=== PATIENT | male | born 1925 | race Caucasian/White ===

== ENCOUNTER 2016-05-27 15:45 | Inpatient (IN) | payer OTHER ==
[2016-05-27 17:07] VITALS: BMI 23.1
--- NOTE | 2016-05-27 18:15 | History and Physical Report ---
History of Present Illnes - History of Present Illness Reason for Visit: Weakness History of Present Illness: Patient presents to SNF from [facility] after failing a trial of home health after a recent hospitalization at [facility] for GI bleed. He was originally admitted 05-19-16 with vomiting blood. EGD showed [place] tear in distal esophagus - injected with epi and clipped. Discharged the next day. Soon had dark tarry stools and felt light headed so went back to [facility]. Hgb noted to be 6. Repeat EGD showed large duodenal ulcer and esophogeal ulcers and esophagitis. Due to hypotension, BPH meds were held. Patient noted to have urinary retention. His bladder scan showed 1000 cc of urine. Lewis was placed and flomax restarted. He failed lewis removal so lewis replaced and finestaride started. He has an appt with urology in a week. - Past Medical History Cardiac: CAD (Dr. Estrada), Other (; h/o AAA's) Gastrointestinal: GI bleed (due to duodenal ulcer with [place]i [place] tear - 05/13 ), Other (colon polyps) Heme/Onc: Other (Chronic thrombocytopenia - DR. Matias) Psych: Depression Musculoskeletal: Other (Osteoporosis) Renal/: Benign prostatic enlarg. (Now with urinary retention - lewis) - Past Surgical History Past Surgical History: Appendectomy, Other (Pacemaker 2012 for sick sinus syndrome), Other (AAA repairs - last 2014 - surgeries for this.) - Past Social History Smoke: Quit (Used to smoke a pipe) Alcohol: None Lives: With Family ( - Corine) - Health Maintenance Health Maintenance: Cholesterol, Influenza Vaccine, Pneumococcal Vaccine, Colonoscopy, DEXA Influenza Vaccine: Current for this Influenza Season Pneumonia Vaccine: Yes Resuscitation Status: Resusciation Status Resuscitation Status Full Code Review of Systems - Review of Systems Constitutional: Weakness. negative: Fever Eyes: negative: pain ENT: negative: Nose Discharge Respiratory: negative: Cough, Shortness of Breath Cardiovascular: negative: Chest Pain Gastrointestinal: Constipation. negative: Nausea, Vomiting, Abdominal Pain Genitourinary: negative: Dysuria Musculoskeletal: negative: Back Pain Skin: negative: Rash Neurological: Weakness - Medications/Allergies Allergies/Adverse Reactions: Allergies Allergy/AdvReac Type Severity Reaction Status Date / Time No Known Allergies Allergy Verified 05/27/16 18:34 Home Medications: Home Medications Citalopram Hydrobromide [Celexa] 40 mg PO QD 05/27/16 Finasteride [Proscar] 5 mg PO HS 05/27/16 Losartan Potassium [Cozaar] 50 mg PO DAILY 05/27/16 Metoprolol Tartrate [Lopressor] 50 mg PO BID 05/27/16 Ondansetron HCl Rapdis [Zofran Odt] 4 mg PO Q4 05/27/16 Pantoprazole Sodium [Protonix] 40 mg PO 717 05/27/16 Tamsulosin HCl [Flomax] 0.4 mg PO [id number] 05/27/16 Current Inpatient Medications: Current Inpatient Medications Bisacodyl (Dulcolax) 10 mg PO DAILY PRN PRN Reason: Constipation Citalopram Hydrobromide (Celexa) 40 mg PO QD JHONY Finasteride (Proscar) 5 mg PO HS [facility] Losartan Potassium (Cozaar) 50 mg PO DAILY [facility] Metoprolol Tartrate (Lopressor) 50 mg PO BID JHONY Ondansetron HCl (Zofran Odt) 4 mg PO Q4 JHONY Pantoprazole Sodium (Protonix) 40 mg PO 717 [facility] Tamsulosin HCl (Flomax) 0.4 mg PO [id number] [facility] Exam - Exam Vital Signs: Vital Signs (72 hours) 05/27/16 16:13 Temperature 97.1 F L Pulse Rate [ 61 Left] Respiratory 18 Rate Blood Pressure 138/73 [Left Arm] O2 Sat by Pulse 98 Oximetry General: Alert, Oriented to Person, Oriented to Place, Oriented to Time, Cooperative, No acute distress HEENT: Atraumatic, PERRLA, EOMI, Mouth Mucous membr. moist/[place], Nose Mucous membr. moist/[place] Neck: Normal Range of Motion Lungs: Clear to auscultation, Normal air movement, Speaks full Sentences Cardiovascular: Regular rate Abdomen: Normal bowel sounds, Soft, No tenderness Integumentary: Normal Extremities: No edema Neurological: Generalized Weakness Psych/Mental Status: Mental status NL, Mood NL, Appropriate Affect, Intact Judgment Assessment/Plan - Assessment/Plan (1) Weakness Status: Acute Current Visit: Yes Plan: Will admit for PT/OT. 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 Will check with Dr. Parikh as he had him on carafate in ICU but not continued on d/c. ASA on hold. No chemical DVT measures either. Will place SUZI hose and encourage ambulation. (3) Urinary retention due to benign prostatic hyperplasia Status: Acute Current Visit: Yes Plan: Plan to continue lewis until seen by Dr. Moncada 06-09-16 at 1:00. On flomax and finestaride. (4) HTN (hypertension) Status: Acute Current Visit: Yes Qualifiers: Hypertension type: essential hypertension Qualified Code(s): I10 - Essential (primary) hypertension Plan: Stable with current meds. (5) CAD (coronary artery disease) Status: Acute Current Visit: Yes Qualifiers: Coronary Disease-Associated Artery/Lesion type: [place] artery [place] vs. transplanted heart: [place] heart Associated angina: without angina Qualified Code(s): I25.10 - Atherosclerotic heart disease of [place] coronary artery without angina pectoris Plan: ASA on hold at this time due to GI bleed. Continue other meds. VTE Assessment - RISK FACTOR SCORE VTE RISK FACTOR SCORES: AGE OVER 60 YEARS - RISK VTE LOW RISK: SCORE OF 1 OR LESS (RISK PROXIMAL DVT 0.4%) NO PROPHYLAXIS NEEDED
[2016-05-27] MEDS: CITALOPRAM HYDROBROMIDE 20 MG TABLET PO SCH ×2 (18:54→18:55)
[2016-05-27] MEDS: METOPROLOL TARTRATE 50 MG TABLET PO SCH (20:54)
[2016-05-27] MEDS: FINASTERIDE 5 MG TABLET PO SCH (20:54)
[2016-05-27] MEDS: ONDANSETRON HCL 4 MG TAB.RAPDIS PO SCH (20:55)
[2016-05-28] MEDS: ONDANSETRON HCL 4 MG TAB.RAPDIS PO SCH ×6 (00:13→20:15)
[2016-05-28] MEDS: PANTOPRAZOLE SODIUM 40 MG TABLET PO SCH ×2 (06:06→17:19)
[2016-05-28] MEDS: METOPROLOL TARTRATE 50 MG TABLET PO SCH ×2 (08:57→20:15)
[2016-05-28] MEDS: LOSARTAN POTASSIUM 50 MG TABLET PO SCH (08:57)
[2016-05-28] MEDS: BISACODYL 5 MG TABLET.DR PO PRN (14:19)
[2016-05-28] MEDS: CITALOPRAM HYDROBROMIDE 20 MG TABLET PO SCH (18:30)
[2016-05-28] MEDS: FINASTERIDE 5 MG TABLET PO SCH (20:15)
[2016-05-29] MEDS: ONDANSETRON HCL 4 MG TAB.RAPDIS PO SCH ×6 (01:00→19:55)
[2016-05-29] MEDS: PANTOPRAZOLE SODIUM 40 MG TABLET PO SCH ×2 (06:07→17:22)
[2016-05-29] MEDS ORDERED: MAGNESIUM HYDROXIDE 400 MG/5 ML 30ML UDC PO ONE (08:34)
[2016-05-29] MEDS: LOSARTAN POTASSIUM 50 MG TABLET PO SCH (09:04)
[2016-05-29] MEDS: METOPROLOL TARTRATE 50 MG TABLET PO SCH ×2 (09:05→19:44)
[2016-05-29] MEDS ORDERED: DOCUSATE SODIUM 100 MG CAPSULE ONE (14:43)
[2016-05-29] MEDS: BISACODYL 5 MG TABLET.DR PO PRN (14:46)
[2016-05-29] MEDS: CITALOPRAM HYDROBROMIDE 20 MG TABLET PO SCH (18:16)
[2016-05-29] MEDS: FINASTERIDE 5 MG TABLET PO SCH (19:43)
[2016-05-30] MEDS: ONDANSETRON HCL 4 MG TAB.RAPDIS PO SCH ×6 (05:55→20:25)
[2016-05-30] MEDS: PANTOPRAZOLE SODIUM 40 MG TABLET PO SCH ×2 (06:12→17:24)
[2016-05-30] MEDS ORDERED: BISACODYL 10 MG SUPP.RECT RC PRN (08:25)
--- NOTE | 2016-05-30 08:27 | Inpatient Progress Note ---
Subjective - Required Recertification Statement I anticipate X number of days because-include discharge plan: 7 - Review of Systems Subjective: Feeling better. Eating and sleeping well. NO BM in several days despite dulcolax and MOM. Objective - Exam Vitals and I&O: Vital Signs Temp 98.0 F 05/30/16 08:13 Pulse 61 05/30/16 08:13 Resp 16 05/30/16 08:13 BP 111/49 05/30/16 08:13 Pulse Ox 94 05/30/16 08:13 Intake & Output 05/29/16 05/29/16 05/30/16 11:59 23:59 11:59 Intake Total 240 1610 560 Output Total 1450 1200 2100 Balance -1210 410 -1540 Intake: Oral 240 1610 560 Output: Urine 1450 1200 2100 Uretheral ([place]) 250 1100 Other: Voiding Method Urinal Indwelling Catheter General: Alert, Oriented to Person, Oriented to Place, Oriented to Time, Cooperative, No acute distress Lungs: Clear to auscultation, Normal air movement, Speaks full Sentences Cardiovascular: Regular rate Abdomen: Normal bowel sounds, Soft Assessment/Plan - Assessment/Plan (1) Weakness Status: Acute Current Visit: Yes (2) GI bleed Status: Acute Current Visit: Yes Qualifiers: GI bleed type/associated pathology: duodenal ulcer Qualified Code(s): 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 transplanted heart: [place] heart Associated angina: without angina Qualified Code(s): I25.10 - Atherosclerotic heart disease of [place] coronary artery without angina pectoris (6) Constipation Status: Acute Current Visit: Yes Qualifiers: Constipation type: other constipation type Qualified Code(s): K59.09 - Other constipation Plan: May need to try dulcolax suppository today. Enc. ambulation and prune juice.
[2016-05-30] MEDS: BISACODYL 5 MG TABLET.DR PO PRN (09:50)
[2016-05-30] MEDS: METOPROLOL TARTRATE 50 MG TABLET PO SCH ×2 (09:50→20:25)
[2016-05-30] MEDS: LOSARTAN POTASSIUM 50 MG TABLET PO SCH (09:50)
[2016-05-30] MEDS: TAMSULOSIN HCL 0.4 MG CAP.ER.24H PO SCH ×2 (12:10→18:40)
[2016-05-30] MEDS: CITALOPRAM HYDROBROMIDE 20 MG TABLET PO SCH (18:39)
[2016-05-30] MEDS: SUCRALFATE 1 GM TABLET PO SCH (20:25)
[2016-05-30] MEDS: FINASTERIDE 5 MG TABLET PO SCH (20:25)
[2016-05-31] MEDS: ONDANSETRON HCL 4 MG TAB.RAPDIS PO SCH ×6 (00:43→20:27)
[2016-05-31] MEDS: PANTOPRAZOLE SODIUM 40 MG TABLET PO SCH ×2 (05:59→18:02)
[2016-05-31] MEDS: LOSARTAN POTASSIUM 50 MG TABLET PO SCH (08:04)
[2016-05-31] MEDS: METOPROLOL TARTRATE 50 MG TABLET PO SCH ×2 (08:04→20:26)
[2016-05-31] MEDS: TAMSULOSIN HCL 0.4 MG CAP.ER.24H PO SCH (18:04)
[2016-05-31] MEDS: CITALOPRAM HYDROBROMIDE 20 MG TABLET PO SCH (18:06)
[2016-05-31] MEDS: FINASTERIDE 5 MG TABLET PO SCH (20:26)
[2016-05-31] MEDS: SUCRALFATE 1 GM TABLET PO SCH (20:27)
[2016-06-01] MEDS: ONDANSETRON HCL 4 MG TAB.RAPDIS PO SCH ×6 (01:43→20:11)
[2016-06-01] MEDS: PANTOPRAZOLE SODIUM 40 MG TABLET PO SCH ×2 (05:40→17:19)
[2016-06-01] MEDS: METOPROLOL TARTRATE 50 MG TABLET PO SCH ×2 (08:39→20:11)
[2016-06-01] MEDS: LOSARTAN POTASSIUM 50 MG TABLET PO SCH (08:39)
[2016-06-01] MEDS: TAMSULOSIN HCL 0.4 MG CAP.ER.24H PO SCH (18:26)
[2016-06-01] MEDS: CITALOPRAM HYDROBROMIDE 20 MG TABLET PO SCH (18:26)
[2016-06-01] MEDS: FINASTERIDE 5 MG TABLET PO SCH (20:11)
[2016-06-01] MEDS: SUCRALFATE 1 GM TABLET PO SCH (20:12)
[2016-06-02] MEDS: ONDANSETRON HCL 4 MG TAB.RAPDIS PO SCH ×6 (01:15→19:49)
[2016-06-02] MEDS: PANTOPRAZOLE SODIUM 40 MG TABLET PO SCH ×2 (06:04→17:05)
[2016-06-02 06:40] LABS: BASOPHILS % 0.4 (0.0-1.5); EOSINOPHILS % 1.5 % (0.0-6.8); MEAN CORPUSCULAR HEMOGLOBIN 30.4 pg (28.0-34.0); MONOCYTES % 7.1 % (0.0-11.0); NEUTROPHILS # 6.3 # k/uL (1.4-7.7)
[2016-06-02] MEDS: LOSARTAN POTASSIUM 50 MG TABLET PO SCH (08:00)
[2016-06-02] MEDS: METOPROLOL TARTRATE 50 MG TABLET PO SCH ×2 (08:00→19:49)
[2016-06-02] MEDS: CITALOPRAM HYDROBROMIDE 20 MG TABLET PO SCH (18:47)
[2016-06-02] MEDS: TAMSULOSIN HCL 0.4 MG CAP.ER.24H PO SCH (18:47)
[2016-06-02] MEDS: FINASTERIDE 5 MG TABLET PO SCH (19:49)
[2016-06-02] MEDS: SUCRALFATE 1 GM TABLET PO SCH (19:50)
[2016-06-03] MEDS: ONDANSETRON HCL 4 MG TAB.RAPDIS PO SCH ×6 (01:17→20:10)
[2016-06-03] MEDS: PANTOPRAZOLE SODIUM 40 MG TABLET PO SCH ×2 (06:07→16:41)
[2016-06-03] MEDS: METOPROLOL TARTRATE 50 MG TABLET PO SCH ×2 (07:59→20:09)
[2016-06-03] MEDS: LOSARTAN POTASSIUM 50 MG TABLET PO SCH (08:00)
[2016-06-03] MEDS: TAMSULOSIN HCL 0.4 MG CAP.ER.24H PO SCH ×2 (17:59→18:00)
[2016-06-03] MEDS: FINASTERIDE 5 MG TABLET PO SCH (20:09)
[2016-06-03] MEDS: CITALOPRAM HYDROBROMIDE 20 MG TABLET PO SCH (20:09)
[2016-06-03] MEDS: SUCRALFATE 1 GM TABLET PO SCH (20:10)
[2016-06-04] MEDS: ONDANSETRON HCL 4 MG TAB.RAPDIS PO SCH ×6 (01:16→20:09)
[2016-06-04] MEDS: ACETAMINOPHEN 325 MG TABLET PO PRN ×2 (02:10→22:43)
[2016-06-04] MEDS: BISACODYL 5 MG TABLET.DR PO PRN (02:10)
[2016-06-04] MEDS: PANTOPRAZOLE SODIUM 40 MG TABLET PO SCH ×2 (06:35→16:52)
[2016-06-04] MEDS: METOPROLOL TARTRATE 50 MG TABLET PO SCH ×2 (08:12→20:09)
[2016-06-04] MEDS: LOSARTAN POTASSIUM 50 MG TABLET PO SCH (08:12)
[2016-06-04] MEDS: CITALOPRAM HYDROBROMIDE 20 MG TABLET PO SCH (16:52)
[2016-06-04] MEDS: TAMSULOSIN HCL 0.4 MG CAP.ER.24H PO SCH (16:52)
[2016-06-04] MEDS: SUCRALFATE 1 GM TABLET PO SCH (20:08)
[2016-06-04] MEDS: FINASTERIDE 5 MG TABLET PO SCH (20:09)
[2016-06-05] MEDS: ONDANSETRON HCL 4 MG TAB.RAPDIS PO SCH ×6 (01:00→20:04)
[2016-06-05] MEDS: BISACODYL 5 MG TABLET.DR PO PRN (04:54)
[2016-06-05] MEDS: ACETAMINOPHEN 325 MG TABLET PO PRN ×2 (04:59→20:06)
[2016-06-05] MEDS: PANTOPRAZOLE SODIUM 40 MG TABLET PO SCH ×2 (06:28→17:27)
[2016-06-05] MEDS: METOPROLOL TARTRATE 50 MG TABLET PO SCH ×2 (10:24→20:03)
[2016-06-05] MEDS: LOSARTAN POTASSIUM 50 MG TABLET PO SCH (10:25)
[2016-06-05] MEDS: TAMSULOSIN HCL 0.4 MG CAP.ER.24H PO SCH (17:26)
[2016-06-05] MEDS: CITALOPRAM HYDROBROMIDE 20 MG TABLET PO SCH (17:27)
[2016-06-05] MEDS: SUCRALFATE 1 GM TABLET PO SCH (20:03)
[2016-06-05] MEDS: FINASTERIDE 5 MG TABLET PO SCH (20:03)
[2016-06-06] MEDS: ONDANSETRON HCL 4 MG TAB.RAPDIS PO SCH ×6 (02:12→20:19)
[2016-06-06] MEDS: PANTOPRAZOLE SODIUM 40 MG TABLET PO SCH ×2 (06:09→17:10)
[2016-06-06] MEDS: METOPROLOL TARTRATE 50 MG TABLET PO SCH ×2 (08:02→20:18)
[2016-06-06] MEDS: LOSARTAN POTASSIUM 50 MG TABLET PO SCH (08:03)
[2016-06-06] MEDS: TAMSULOSIN HCL 0.4 MG CAP.ER.24H PO SCH (17:10)
[2016-06-06] MEDS: CITALOPRAM HYDROBROMIDE 20 MG TABLET PO SCH (17:10)
[2016-06-06] MEDS: FINASTERIDE 5 MG TABLET PO SCH (20:18)
[2016-06-06] MEDS: SUCRALFATE 1 GM TABLET PO SCH (20:19)
[2016-06-06] MEDS: ACETAMINOPHEN 325 MG TABLET PO PRN (20:20)
[2016-06-07] MEDS: ONDANSETRON HCL 4 MG TAB.RAPDIS PO SCH ×6 (00:28→19:51)
[2016-06-07] MEDS: ACETAMINOPHEN 325 MG TABLET PO PRN ×2 (05:13→21:21)
[2016-06-07] MEDS: PANTOPRAZOLE SODIUM 40 MG TABLET PO SCH ×2 (05:13→17:16)
[2016-06-07] MEDS: LOSARTAN POTASSIUM 50 MG TABLET PO SCH (07:56)
[2016-06-07] MEDS: METOPROLOL TARTRATE 50 MG TABLET PO SCH ×2 (07:56→19:52)
[2016-06-07] MEDS: CITALOPRAM HYDROBROMIDE 20 MG TABLET PO SCH (17:17)
[2016-06-07] MEDS: TAMSULOSIN HCL 0.4 MG CAP.ER.24H PO SCH (17:17)
[2016-06-07] MEDS: FINASTERIDE 5 MG TABLET PO SCH (19:51)
[2016-06-07] MEDS: SUCRALFATE 1 GM TABLET PO SCH (19:51)
[2016-06-08] MEDS: ONDANSETRON HCL 4 MG TAB.RAPDIS PO SCH ×6 (00:56→20:19)
[2016-06-08] MEDS: PANTOPRAZOLE SODIUM 40 MG TABLET PO SCH ×2 (06:00→17:07)
[2016-06-08] MEDS: METOPROLOL TARTRATE 50 MG TABLET PO SCH ×2 (08:02→20:19)
[2016-06-08] MEDS: LOSARTAN POTASSIUM 50 MG TABLET PO SCH (08:02)
--- NOTE | 2016-06-08 09:14 | Inpatient Progress Note ---
Subjective - Required Recertification Statement I anticipate X number of days because-include discharge plan: 4 - Review of Systems Subjective: Feeling better. Eating and sleeping well. NO BM in several days despite dulcolax and MOM. Objective - Exam Vitals and I&O: Vital Signs Temp 97.2 F L 06/07/16 21:00 Pulse 60 06/07/16 21:00 Resp 18 06/07/16 21:00 BP 138/56 06/07/16 21:00 Pulse Ox 97 06/07/16 21:00 Intake & Output 06/07/16 06/07/16 06/08/16 11:59 23:59 11:59 Intake Total 360 460 Output Total 1000 1600 800 Balance -452 -7066 -800 Intake: Oral 360 460 Output: Urine 1000 1600 800 Other: Voiding Method Indwelling Catheter Indwelling Catheter General: Alert, Oriented to Person, Oriented to Place, Oriented to Time, Cooperative Lungs: Clear to auscultation, Normal air movement, Speaks full Sentences Cardiovascular: Regular rate - Results Results: Laboratory Results WBC 7.50 K/ul (4.00-12.00) 06/02/16 06:25 RBC 2.80 M/ul (3.90-5.20) L 06/02/16 06:25 Hgb 8.5 g/dL (12.0-18.0) L 06/02/16 06:25 Hct 26.5 % (37.0-53.0) L 06/02/16 06:25 MCV 95.0 fl (80.0-100.0) 06/02/16 06:25 MCH 30.4 pg (28.0-34.0) 06/02/16 06:25 MCHC 32.0 g/dL (30.0-36.0) 06/02/16 06:25 RDW 16.3 % (11.3-14.3) H 06/02/16 06:25 Plt Count 158 K/mm3 (130-400) 06/02/16 06:25 Neut % (Auto) 82.9 % (39.0-79.0) H 06/02/16 06:25 Lymph % (Auto) 6.0 % (16.0-50.0) L 06/02/16 06:25 [place] % (Auto) 7.1 % (0.0-11.0) 06/02/16 06:25 Eos % (Auto) 1.5 % (0.0-6.8) 06/02/16 06:25 Baso % (Auto) 0.4 (0.0-1.5) 06/02/16 06:25 Neut # 6.3 # k/uL (1.4-7.7) 06/02/16 06:25 Lymph # 0.4 # k/uL (0.6-4.0) L 06/02/16 06:25 [place] # 0.5 # k/uL (0.0-0.9) 06/02/16 06:25 Eos # 0.1 # k/uL (0.0-0.6) 06/02/16 06:25 Baso # 0.0 # k/uL (0.0-0.5) 06/02/16 06:25 Reactive Lymphs % 2.1 % (0.0-5.0) 06/02/16 06:25 Reactive Lymphs # 0.2 # k/uL (0.0-0.8) 06/02/16 06:25 Assessment/Plan - Assessment/Plan (1) Weakness Status: Acute Current Visit: Yes (2) GI bleed Status: Acute Current Visit: Yes (3) Urinary retention due to benign prostatic hyperplasia Status: Acute Current Visit: Yes (4) HTN (hypertension) Status: Acute Current Visit: Yes (5) CAD (coronary artery disease) Status: Acute Current Visit: Yes (6) Constipation Status: Acute Current Visit: Yes Plan: Add sennosides.
[2016-06-08] MEDS: SENNOSIDES 8.6 MG TABLET PO SCH (11:37)
[2016-06-08] MEDS: TAMSULOSIN HCL 0.4 MG CAP.ER.24H PO SCH (18:05)
[2016-06-08] MEDS: CITALOPRAM HYDROBROMIDE 20 MG TABLET PO SCH (18:05)
[2016-06-08] MEDS: FINASTERIDE 5 MG TABLET PO SCH (20:19)
[2016-06-08] MEDS: SUCRALFATE 1 GM TABLET PO SCH (20:19)
[2016-06-09] MEDS: ONDANSETRON HCL 4 MG TAB.RAPDIS PO SCH ×6 (00:54→20:27)
[2016-06-09] MEDS: PANTOPRAZOLE SODIUM 40 MG TABLET PO SCH ×2 (05:50→16:47)
[2016-06-09] MEDS: LOSARTAN POTASSIUM 50 MG TABLET PO SCH (08:19)
[2016-06-09] MEDS: METOPROLOL TARTRATE 50 MG TABLET PO SCH ×2 (08:19→20:26)
[2016-06-09] MEDS: SENNOSIDES 8.6 MG TABLET PO SCH (08:20)
[2016-06-09] MEDS: CITALOPRAM HYDROBROMIDE 20 MG TABLET PO SCH (18:11)
[2016-06-09] MEDS: TAMSULOSIN HCL 0.4 MG CAP.ER.24H PO SCH (18:11)
[2016-06-09] MEDS: SUCRALFATE 1 GM TABLET PO SCH (20:26)
[2016-06-09] MEDS: FINASTERIDE 5 MG TABLET PO SCH (20:26)
[2016-06-09] MEDS: ACETAMINOPHEN 325 MG TABLET PO PRN (23:30)
[2016-06-10] MEDS: ONDANSETRON HCL 4 MG TAB.RAPDIS PO SCH ×6 (01:28→19:58)
[2016-06-10] MEDS: PANTOPRAZOLE SODIUM 40 MG TABLET PO SCH ×2 (05:58→17:31)
[2016-06-10] MEDS: SENNOSIDES 8.6 MG TABLET PO SCH (09:01)
[2016-06-10] MEDS: LOSARTAN POTASSIUM 50 MG TABLET PO SCH (09:01)
[2016-06-10] MEDS: CIPROFLOXACIN HCL 500 MG TABLET PO SCH ×2 (09:03→19:58)
[2016-06-10] MEDS: METOPROLOL TARTRATE 50 MG TABLET PO SCH ×2 (09:03→19:58)
[2016-06-10] MEDS: CITALOPRAM HYDROBROMIDE 20 MG TABLET PO SCH (17:31)
[2016-06-10] MEDS: TAMSULOSIN HCL 0.4 MG CAP.ER.24H PO SCH (17:31)
[2016-06-10] MEDS: FINASTERIDE 5 MG TABLET PO SCH (19:58)
[2016-06-10] MEDS: SUCRALFATE 1 GM TABLET PO SCH (19:58)
[2016-06-11] MEDS: PANTOPRAZOLE SODIUM 40 MG TABLET PO SCH ×2 (05:55→17:08)
[2016-06-11] MEDS: ONDANSETRON HCL 4 MG TAB.RAPDIS PO SCH ×5 (06:01→19:29)
[2016-06-11] MEDS: METOPROLOL TARTRATE 50 MG TABLET PO SCH ×2 (08:04→19:29)
[2016-06-11] MEDS: CIPROFLOXACIN HCL 500 MG TABLET PO SCH ×2 (08:04→19:29)
[2016-06-11] MEDS: LOSARTAN POTASSIUM 50 MG TABLET PO SCH (08:04)
[2016-06-11] MEDS: SENNOSIDES 8.6 MG TABLET PO SCH (08:05)
[2016-06-11] MEDS: TAMSULOSIN HCL 0.4 MG CAP.ER.24H PO SCH (17:55)
[2016-06-11] MEDS: CITALOPRAM HYDROBROMIDE 20 MG TABLET PO SCH (18:10)
[2016-06-11] MEDS: FINASTERIDE 5 MG TABLET PO SCH (19:29)
[2016-06-11] MEDS: SUCRALFATE 1 GM TABLET PO SCH (19:29)
[2016-06-11] MEDS: ACETAMINOPHEN 325 MG TABLET PO PRN (21:17)
[2016-06-12] MEDS: ACETAMINOPHEN 325 MG TABLET PO PRN (03:26)
[2016-06-12] MEDS: ONDANSETRON HCL 4 MG TAB.RAPDIS PO SCH ×5 (05:59→19:45)
[2016-06-12] MEDS: PANTOPRAZOLE SODIUM 40 MG TABLET PO SCH ×2 (06:03→16:41)
[2016-06-12] MEDS: METOPROLOL TARTRATE 50 MG TABLET PO SCH ×2 (08:23→19:45)
[2016-06-12] MEDS: CIPROFLOXACIN HCL 500 MG TABLET PO SCH ×2 (08:23→19:45)
[2016-06-12] MEDS: LOSARTAN POTASSIUM 50 MG TABLET PO SCH (08:23)
[2016-06-12] MEDS: SENNOSIDES 8.6 MG TABLET PO SCH (08:24)
[2016-06-12] MEDS: TAMSULOSIN HCL 0.4 MG CAP.ER.24H PO SCH (18:19)
[2016-06-12] MEDS: CITALOPRAM HYDROBROMIDE 20 MG TABLET PO SCH (18:19)
[2016-06-12] MEDS: SUCRALFATE 1 GM TABLET PO SCH (19:45)
[2016-06-12] MEDS: FINASTERIDE 5 MG TABLET PO SCH (19:45)
[2016-06-13] MEDS: ONDANSETRON HCL 4 MG TAB.RAPDIS PO SCH ×6 (01:12→20:31)
[2016-06-13] MEDS: ACETAMINOPHEN 325 MG TABLET PO PRN ×2 (02:58→20:33)
[2016-06-13] MEDS: PANTOPRAZOLE SODIUM 40 MG TABLET PO SCH ×2 (05:18→17:54)
[2016-06-13] MEDS ORDERED: TUBERCULIN,PURIF.PROT.DERIV. 5 TU/0.1 ML ID ONE (08:45)
[2016-06-13] MEDS: LOSARTAN POTASSIUM 50 MG TABLET PO SCH (09:31)
[2016-06-13] MEDS: SENNOSIDES 8.6 MG TABLET PO SCH (09:31)
[2016-06-13] MEDS: METOPROLOL TARTRATE 50 MG TABLET PO SCH ×2 (09:31→20:30)
[2016-06-13] MEDS: TAMSULOSIN HCL 0.4 MG CAP.ER.24H PO SCH (17:54)
[2016-06-13] MEDS: CITALOPRAM HYDROBROMIDE 20 MG TABLET PO SCH (17:54)
[2016-06-13] MEDS: FINASTERIDE 5 MG TABLET PO SCH (20:30)
[2016-06-13] MEDS: SUCRALFATE 1 GM TABLET PO SCH (20:30)
[2016-06-14] MEDS: ONDANSETRON HCL 4 MG TAB.RAPDIS PO SCH ×6 (00:42→19:44)
[2016-06-14] MEDS: PANTOPRAZOLE SODIUM 40 MG TABLET PO SCH ×2 (06:29→16:13)
[2016-06-14] MEDS: LOSARTAN POTASSIUM 50 MG TABLET PO SCH (08:17)
[2016-06-14] MEDS: SENNOSIDES 8.6 MG TABLET PO SCH (08:17)
[2016-06-14] MEDS: METOPROLOL TARTRATE 50 MG TABLET PO SCH ×2 (08:17→19:43)
[2016-06-14] MEDS: TAMSULOSIN HCL 0.4 MG CAP.ER.24H PO SCH (17:41)
[2016-06-14] MEDS: CITALOPRAM HYDROBROMIDE 20 MG TABLET PO SCH (18:26)
[2016-06-14] MEDS: SUCRALFATE 1 GM TABLET PO SCH (19:43)
[2016-06-14] MEDS: FINASTERIDE 5 MG TABLET PO SCH (19:44)
[2016-06-15] MEDS: ONDANSETRON HCL 4 MG TAB.RAPDIS PO SCH ×3 (01:21→08:51)
[2016-06-15] MEDS: ACETAMINOPHEN 325 MG TABLET PO PRN (02:56)
[2016-06-15] MEDS: PANTOPRAZOLE SODIUM 40 MG TABLET PO SCH (06:01)
--- NOTE | 2016-06-15 07:49 | Discharge Summary ---
Discharge Summary - Discharge Sumary History of Present Illness: Patient presents to SNF from [facility] after failing a trial of home health after a recent hospitalization at [facility] for GI bleed. He was originally admitted 05-19-16 with vomiting blood. EGD showed [place]i [place] tear in distal esophagus - injected with epi and clipped. Discharged the next day. Soon had dark tarry stools and felt light headed so went back to [facility]. Hgb noted to be 6. Repeat EGD showed large duodenal ulcer and esophogeal ulcers and esophagitis. Due to hypotension, BPH meds were held. Patient noted to have urinary retention. His bladder scan showed 1000 cc of urine. Lewis was placed and flomax restarted. He failed lewis removal so lewis replaced and finestaride started. He has an appt with urology in a week. Condition at Discharge: Stable Home Medications: Ambulatory Orders Medication Instructions Recorded Citalopram Hydrobromide [Celexa] 40 mg PO QD #30 tablet 06/14/16 Finasteride [Proscar] 5 mg PO HS #30 tablet 06/14/16 Losartan Potassium [Cozaar] 50 mg PO DAILY #30 tablet 06/14/16 Metoprolol Tartrate [Lopressor] 50 mg PO BID #60 tablet 06/14/16 Pantoprazole Sodium [Protonix] 40 mg PO 717 #30 tablet. 06/14/16 Sucralfate [Carafate] 1 gm PO HS #30 tablet 06/14/16 Tamsulosin HCl [Flomax] 0.4 mg PO [id number] #30 cap.er.24h 06/14/16 Consultations this Visit: None Procedures this Visit: None Allergies/Adverse Reactions: Allergies Allergy/AdvReac Type Severity Reaction Status Date / Time No Known Allergies Allergy Verified 05/27/16 18:34 Patient Problems: Current Active Problems Problem Status Onset CAD (coronary artery disease) Acute Constipation Acute GI bleed Acute HTN (hypertension) Acute Urinary retention due to benign prostatic hyperplasia Acute Weakness Acute Discharge Summary: Patient was admitted to SNF care after hospitalization x 2 with GI bleed at [facility]. He did well with therapies and progressed to meet his goals. He had a follow up with urology, who tried to discontinue lewis. Bladder was instilled with 500 cc of saline. After no void in 6 hours, lewis was replaced. He will continue current meds and f/u with urology as scheduled. Questions on discharge disposition. Finally, it was decided patient will live with his son. Family refused home health - reporting they will "take him to local therapy." Will place leg bag on lewis for safety. Hospital Course: Discharge Dx: Weakness. GI bleed. HTN. Urinary retention. Disposition - home with son
[2016-06-15] MEDS: LOSARTAN POTASSIUM 50 MG TABLET PO SCH (08:50)
[2016-06-15] MEDS: METOPROLOL TARTRATE 50 MG TABLET PO SCH (08:50)
[2016-06-15] MEDS: SENNOSIDES 8.6 MG TABLET PO SCH (08:54)
[2016-06-15 09:23] VITALS: BP 163/86
== END 2016-06-15 10:30 | disposition home or self-care (01) | DRG 948 ==
LOC: SOUTH 15:45
PROVIDERS: ADMIT Family Medicine; ATTEND Family Medicine
DX: R53.1 Weakness (principal); K92.2 Gastrointestinal hemorrhage, unspecified; I10 Essential (primary) hypertension; R33.9 Retention of urine, unspecified
CPT/HCPCS: 36415; 85025; 86580; A9270

== ENCOUNTER 2016-09-28 10:07 | Emergency (ER) | payer OTHER ==
--- NOTE | 2016-09-28 10:30 | ED Physician Documentation ---
Chest Pain - HISTORIAN Historian: patient, spouse - HPI Chief Complaint: Chest Pain Additional Information: pt light headed on arising went visit friend got worse found yg=270/92.pt has list meds but takes meds from tray filled by son at [facility] so unsure of meds actually taken Onset: hours (4-5) Timing: gradual onset, still present (no falls) Duration: waxing, waning Severity: mild, moderate Quality: none. denies: pressure, tightness Chest Pain Signs/Symptoms: denies: nausea, vomiting, diaphoresis, cool extremities, dizziness Relieved By: rest - ROS CONST: no problems MS/LYMPH: none. denies: neck pain, calf pain, ankle swelling GI/: none EYES/ENT: denies: problems with vision SKIN/ENDO: none NEURO/PSYCH: other (hx dementia) - PAST HX NH risk factors: hypertension DVT/PE Risk Factors: other (bph wears catheter) GI disease: GERD Surgeries/Procedures: pacemaker, other (repair hiatal henia) Allergies/Adverse Reactions: Allergies Allergy/AdvReac Type Severity Reaction Status Date / Time No Known Allergies Allergy Verified 05/27/16 18:34 Home Medications: Ambulatory Orders Medication Instructions Recorded Citalopram Hydrobromide [Celexa] 40 mg PO QD #30 tablet 06/14/16 Finasteride [Proscar] 5 mg PO HS #30 tablet 06/14/16 Losartan Potassium [Cozaar] 50 mg PO DAILY #30 tablet 06/14/16 Metoprolol Tartrate [Lopressor] 50 mg PO BID #60 tablet 06/14/16 Pantoprazole Sodium [Protonix] 40 mg PO 717 #30 tablet. 06/14/16 Sucralfate [Carafate] 1 gm PO HS #30 tablet 06/14/16 Tamsulosin HCl [Flomax] 0.4 mg PO [id number] #30 cap.er.24h 06/14/16 - SOCIAL HX Smoking History: non-smoker Alcohol Use: none Drug Use: none - FAMILY HX Family HX: none - VITAL SIGNS Vital Signs: Vital Signs Temp Pulse Resp BP Pulse Ox 163/86 06/15/16 09:00 - REVIEWED ASSESSMENTS Nursing Assessment Reviewed: Yes Vitals Reviewed: Yes Chest Pain Physical Exam - EXAM General Appearance: mild distress EENT: eye inspection normal Neck: nml inspection, no carotid bruit. No: lymphadenopathy Respiratory: no resp. distress, nml breath sounds CVS: No: reg. rate & rhythm (wears pacemaker) Abdomen: soft, non-tender (liver appears to ext to near sacral crest) Skin: warm/dry, normal color. No: cyanosis, diaphoresis, jaundice Extremities: non-tender, normal range of motion, no edema Neuro: oriented X3, motor nml, sensation nml, mood/affect nml Discharge Home Medications: Ambulatory Orders Citalopram Hydrobromide [Celexa] 40 mg PO QD #30 tablet 06/14/16 Finasteride [Proscar] 5 mg PO HS #30 tablet 06/14/16 Losartan Potassium [Cozaar] 50 mg PO DAILY #30 tablet 06/14/16 Metoprolol Tartrate [Lopressor] 50 mg PO BID #60 tablet 06/14/16 Pantoprazole Sodium [Protonix] 40 mg PO 717 #30 tablet.dr 06/14/16 Sucralfate [Carafate] 1 gm PO HS #30 tablet 06/14/16 Tamsulosin HCl [Flomax] 0.4 mg PO [id number] #30 cap.er.24h 06/14/16
[2016-09-28 10:54] LABS: BASOPHILS % 0.5 (0.0-1.5); EOSINOPHILS % 2.2 % (0.0-6.8); MEAN CORPUSCULAR HEMOGLOBIN 32.3 pg (28.0-34.0); MEAN CORPUSCULAR VOLUME 95.1 fl (80.0-100.0)
[2016-09-28] MEDS: ASPIRIN 81 MG CHEW TAB PO ONE (11:09)
[2016-09-28 11:16] LABS: eGFR (African) > 60; eGFR (Non-African) > 60
--- NOTE | 2016-09-28 13:16 | Diagnostic Imaging Report ---
LJ THOMAS~ [facility] [address] [address] ~ ~ ~ ~ Report Submission Date: Sep 28, 2016 11:22:19 AM CDT Patient ~ Study Name: JOANNA KENNEDY ~ Date: Sep 28, 2016 10:44:13 AM CDT ~ Modality Type: CR Gender: M ~ Description: CHEST : [birth year] ~ Institution: [facility] Physician: LJ THOMAS ~ ~ ~ ~ Examination: Portable chest History: Chest discomfort Findings: Single view of the chest demonstrates a normal cardiac silhouette. Tortuous aorta with a vascular calcifications. Dual lead left sided cardiac pacemaker. Hilar granuloma. Lung zuleta without focal infiltrate. No effusion. Osseous structures are appropriate for age. Impression: No acute pulmonary process. ~ Electronically signed on Sep 28, 2016 11:22:19 AM CDT by: Shankar ROWLEY
[2016-09-28 13:44] VITALS: BP 167/85
--- NOTE | 2016-09-28 19:23 | Diagnostic Imaging Report ---
LJ THOMAS [facility] [address] [facility] [address] [place], [place]. [address] Report Submission Date: Sep 28, 2016 2:10:40 PM CDT Patient Study Name: JOANNA KENNEDY Date: Sep 28, 2016 1:52:02 PM CDT Modality Type: CT\SR Gender: M Description: CT BRAIN W/O CONTRAST : [birth year] Institution: [facility] Physician: LJ THOMAS Examination: CT head without contrast History: Dizzy Comparison exam: None available Technique: Noncontrast head CT protocol. Findings: Ventricles and sulci are prominent, though consistent for patient age. Cerebrocerebellar parenchyma demonstrates periventricular low attenuation consistent with small vessel disease. No evidence for parenchymal hemorrhage. No evidence for mass or mass effect. No midline shift. No extra axial fluid collections. Partial visualization of the paranasal sinuses, mastoid air cells, orbits, skull and scalp without gross regularity. Falx calcifications. Impression: Age related changes. No acute parenchymal process. No hemorrhage. Electronically signed on Sep 28, 2016 2:10:40 PM CDT by: Shankar ROWLEY
== END 2016-09-28 14:25 | disposition home or self-care (01) ==
LOC: ED 10:07
DX: I10 Essential (primary) hypertension (principal)
CPT/HCPCS: 70450; 71010; 80053; 82550; 84484; 85025; 99283; S1016

== ENCOUNTER → 2016-12-19 | Outpatient (CLI) | payer OTHER ==
[2016-12-19 14:09] LABS: APPEARANCE,URINE Cloudy (CLEAR); COLOR,URINE Yellow (YELLOW); OCCULT BLOOD,URINE 2+ (NEGATIVE); UROBILINOGEN URINE 0.2 Eu (0.2-1.0)
[2016-12-19 14:31] LABS: AMORPHOUS SEDIMENT,UR FEW (NEGATIVE)
== END ==
LOC: LAB 13:44
PROVIDERS: ATTEND Urology
DX: R33.9 Retention of urine, unspecified (principal)
CPT/HCPCS: 81002; 87086; 87186

== ENCOUNTER 2017-02-28 07:24 | Observation (INO) | payer OTHER ==
--- NOTE | 2017-02-28 07:28 | ED Physician Documentation ---
Abdominal Pain - HISTORIAN Historian: patient - HPI Chief Complaint: Abdominal Pain (constipation) Additonal Information: 89yo white male who sates that he has recurrent problems with constipation. Has only been having small stools starting about one week ago. Over the last 3 days has not had any stools. Has been passing some gas. No blood in stools noted. Has had a colonoscopy in the past but not sure how long ago. Last nco he vomited a small amount, no blood noted. Does not take anything to help prevent constipation. Has taken some Pepto yesterday. Has had appendectomy done years ago. Onset: days ago (3 days) Timing: worse Context: denies: out of country travel, bad food, recent trauma Severity: moderate Quality: pain, aching, cramping Associated Symptoms: nausea, vomiting (times one), loss of appetite. denies: fever, chills, coffee ground emesis, bloody emesis, diarrhea, bloody stools, grossly bloody stools Relieved by: nothing - ROS CONST: no problems GI/: constipation. denies: black stools, bloody urine, bloody stools, dark urine, problems urinating CVS/RESP: none - SOCIAL HX Smoking History: non-smoker Alcohol Use: none Drug Use: none - FAMILY HX Family History: no significant history - PAST HX Past History: other (constipation, BPH, GERD, HTN) Other History: none. denies: diabetes Type 2 Surgeries/Procedures: appendectomy, other (cataract, pacemaker placement, aortic stint placed) Immunizations: referred to PCP Home Medications: Ambulatory Orders Medication Instructions Recorded Finasteride [Proscar] 5 mg PO HS #30 tablet 06/14/16 Losartan Potassium [Cozaar] 50 mg PO DAILY #30 tablet 06/14/16 Metoprolol Tartrate [Lopressor] 50 mg PO BID #60 tablet 06/14/16 Pantoprazole Sodium [Protonix] 40 mg PO 717 #30 tablet. 06/14/16 Tamsulosin HCl [Flomax] 0.4 mg PO [id number] #30 cap.er.24h 06/14/16 Allergies/Adverse Reactions: Allergies Allergy/AdvReac Type Severity Reaction Status Date / Time No Known Allergies Allergy Verified 02/28/17 07:49 - VITAL SIGNS Vital Signs: Vital Signs Temp Pulse Resp BP Pulse Ox 98.4 F 82 20 188/93 98 02/28/17 08:59 02/28/17 09:59 02/28/17 09:59 02/28/17 09:59 02/28/17 09:59 - REVIEWED ASSESSMENTS Nursing Assessment Reviewed: Yes Vitals Reviewed: Yes Progress - Progress Progress: 08:37 Patient is still having some cramping pain but better some. Is feeling nauseated.Advised patient to be admitted for observation to help with constipation. ED Results Lab/Radiology - Lab Results Lab Results: Lab Results 02/28/17 02/28/17 02/28/17 08:34 08:05 08:05 WBC 7.70 K/ul K/ul (4.00-12.00) RBC 3.98 M/ul M/ul (3.90-5.20) Hgb 14.0 g/dL g/dL (12.0-18.0) Hct 39.3 % % (37.0-53.0) MCV 98.7 fl fl (80.0-100.0) MCH 35.2 pg H pg (28.0-34.0) MCHC 35.6 g/dL g/dL (30.0-36.0) RDW 13.9 % % (11.3-14.3) Plt Count 134 K/mm3 K/mm3 (130-400) Neut % (Auto) 83.9 % H % (39.0-79.0) Lymph % (Auto) 7.0 % L % (16.0-50.0) [place] % (Auto) 6.4 % % (0.0-11.0) Eos % (Auto) 0.6 % % (0.0-6.8) Baso % (Auto) 0.4 (0.0-1.5) Neut # (Auto) 6.4 # k/uL # k/uL (1.4-7.7) Lymph # (Auto) 0.5 # k/uL L # k/uL (0.6-4.0) [place] # (Auto) 0.5 # k/uL # k/uL (0.0-0.9) Eos # (Auto) 0.0 # k/uL # k/uL (0.0-0.6) Baso # (Auto) 0.0 # k/uL # k/uL (0.0-0.5) Reactive Lymphs % 1.7 % % (0.0-5.0) Reactive Lymphs # 0.1 # k/uL # k/uL (0.0-0.8) Sodium 132 mmol/L L mmol/L (136-145) Potassium 4.5 mmol/L mmol/L (3.5-5.1) Chloride 95 mmol/L L mmol/L (98-107) Carbon Dioxide 25 mmol/L mmol/L (22-30) BUN 23 mg/dL H mg/dL (9-20) Creatinine 1.00 mg/dL mg/dL (0.66-1.25) Estimated Creat Clear 54 Est GFR ( Amer) > 60 (60 - ) Est GFR (Non-Af Amer) > 60 (60 - ) Glucose 141 mg/dL H mg/dL (74-106) Calcium 10.0 mg/dL mg/dL (8.4-10.2) Total Bilirubin 1.9 mg/dL H mg/dL (0.2-1.3) AST 50 U/L H U/L (15-46) ALT 36 U/L U/L (13-69) Alkaline Phosphatase 87 U/L U/L (38-126) Total Protein 7.1 g/dL g/dL (6.3-8.2) Albumin 4.4 g/dL g/dL (3.5-5.0) Lipase 97 U/L U/L (23-300) Urine Color Yellow (YELLOW) Urine Appearance Clear (CLEAR) Urine pH 7.5 (5.0 - 8.0) Ur Specific [place] 1.025 (1.010-1.030) Urine Protein 2+ mg/dL H mg/dL (NEGATIVE) Urine Ketones 1+ mg/dL H mg/dL (NEGATIVE) Urine Occult Blood 2+ H (NEGATIVE) Urine Nitrite Positive H (NEGATIVE) Urine Bilirubin Negative (NEGATIVE) Urine Urobilinogen 0.2 Eu Eu (0.2-1.0) Ur Leukocyte Esterase Negative (NEGATIVE) Urine Glucose Negative mg/dL mg/dL (NEGATIVE) - Orders Orders: ED Orders Category Date Time Status In & Out Catheter [Urinary catheterization] 1T Care 02/28/17 07:[address] IV Lock 1T Care 02/28/17 07:47 Active ABDOMEN COMPLETE [RAD] Stat Exams 02/28/17 Taken CBC/PLATELET/DIFF Routine Lab 02/28/17 08:05 Completed CMP Routine Lab 02/28/17 08:05 Completed LIPASE Routine Lab 02/28/17 08:05 Completed UA MACRO DIP ONLY Routine Lab 02/28/17 08:34 Completed Abdominal Pain Physical Exam - Physical Exam General Appearance: alert, moderate distress EENT: no signs of dehydration NECK: normal inspection, thyroid normal, supple RESPIRATORY: no resp distress, chest non-tender, breath sounds normal. No: wheezes, rales, rhonchi CVS: reg rate & rhythm, heart sounds normal, equal pulses ABDOMEN: soft, tenderness (RUQ), mass (large mass in RUQ area), abnormal bowel sounds (hyperactive), increased BS, distended (mild). No: rebound, guarding SKIN: warm/dry, normal color, cyanosis EXTREMITIES: non-tender NEURO: oriented X3, CN's nml as tested, motor nml, sensation nml, mood/affect nml Vital Signs: Vital Signs Temp Pulse Resp BP Pulse Ox 98.4 F 82 20 188/93 98 02/28/17 08:59 02/28/17 09:59 02/28/17 09:59 02/28/17 09:59 02/28/17 09:59 Discharge Clincal Impression: Constipation Qualifiers: Constipation type: slow transit constipation Qualified Code(s): K59.01 - Slow transit constipation Condition: Stable Decision to Admit: [id number] Date of Decison to Admit: 02/28/17 Decision Time: 08:39
[2017-02-28 08:09] LABS: BASOPHILS % 0.4 (0.0-1.5); EOSINOPHILS % 0.6 % (0.0-6.8); MEAN CORPUSCULAR HEMOGLOBIN 35.2 pg (28.0-34.0); MEAN CORPUSCULAR VOLUME 98.7 fl (80.0-100.0); MONOCYTES % 6.4 % (0.0-11.0); NEUTROPHILS # 6.4 # k/uL (1.4-7.7)
[2017-02-28 08:22] LABS: eGFR (African) > 60; eGFR (Non-African) > 60
[2017-02-28] MEDS ORDERED: KETOROLAC TROMETHAMINE 30 MG/1ML VIAL IVP ONE (08:51)
[2017-02-28 09:05] LABS: APPEARANCE,URINE CLEAR (CLEAR); COLOR,URINE YELLOW (YELLOW); OCCULT BLOOD,URINE 2+ (NEGATIVE); PH URINE 7.5 (5.0 - 8.0); UROBILINOGEN URINE 0.2 Eu (0.2-1.0)
[2017-02-28] MEDS ORDERED: ONDANSETRON HCL/PF 4 MG/ 2ML VIAL IVP ONE (10:36)
[2017-02-28] MEDS: LOSARTAN POTASSIUM 50 MG TABLET PO SCH (11:11)
[2017-02-28] MEDS: METOPROLOL TARTRATE 50 MG TABLET PO SCH ×2 (11:12→21:50)
[2017-02-28] MEDS: 0.9 % SODIUM CHLORIDE 1,000 ML IV SCH ×2 (12:19→21:00)
[2017-02-28] MEDS: ENOXAPARIN SODIUM 30 MG/0.3 ML DISP.SYRIN SQ SCH (12:19)
--- NOTE | 2017-02-28 12:55 | Diagnostic Imaging Report ---
LOVE ARCOS [facility] [address] [facility] [address] [address] Report Submission Date: Feb 28, 2017 8:23:18 AM MOBILE PAINT SPECIALIST Patient Study Name: JOANNA KENNEDY Date: Feb 28, 2017 8:05:02 AM MOBILE PAINT SPECIALIST Modality Type: CR Gender: M Description: ABDOMEN : 07/01/27 Institution: [facility] Physician: LOVE ARCOS Examination: Obstruction series History: Abdominal discomfort. Right upper quadrant fullness. Findings: 3 views obtained of the abdomen. No abnormal dilation of the large or small bowel. Stool throughout the large bowel. No suspicious calcification projecting over the renal fossa or the lower pelvic region. Aortoiiliac stent. Impression: Significant large bowel stool. No obstruction. Electronically signed on Feb 28, 2017 8:23:18 AM MOBILE PAINT SPECIALIST by: Shankar ROWLEY
[2017-02-28 13:01] VITALS: BMI 19.5
[2017-02-28] MEDS ORDERED: MAGNESIUM CITRATE 296 ML BOTTLE PO ONE (15:00)
[2017-02-28] MEDS: PANTOPRAZOLE SODIUM 40 MG TABLET PO SCH (17:36)
[2017-02-28] MEDS: KETOROLAC TROMETHAMINE 30 MG/1ML VIAL IVP PRN (21:49)
[2017-02-28] MEDS: FINASTERIDE 5 MG TABLET PO SCH (21:50)
[2017-03-01] MEDS: CEFUROXIME AXETIL 250 MG TABLET PO SCH ×3 (01:28→19:49)
[2017-03-01] MEDS: PANTOPRAZOLE SODIUM 40 MG TABLET PO SCH ×2 (06:08→18:02)
--- NOTE | 2017-03-01 07:15 | Diagnostic Imaging Report ---
ALCIDES ARCOS [facility] [address] [facility] [address] [address] Report Submission Date: Mar 01, 2017 7:10:19 AM BAND SPLICER Patient Study Name: JOANNA KENNEDY Date: Mar 01, 2017 6:48:00 AM BAND SPLICER Modality Type: CR Gender: M Description: ABDOMEN : 07/01/27 Institution: [facility] Physician: ALCIDES ARCOS AP view of the abdomen Clinical history: Constipation followup Very mild fecal retention improved since the previous study of February 28, 2017. 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 Mild degree of colonic and small bowel ileus. No free air Impression: Improved with decrease of the fecal retention since the previous study . Mild ileus , no free air Electronically signed on Mar 01, 2017 7:10:19 AM BAND SPLICER by: Alcides ROWLEY
[2017-03-01] MEDS: 0.9 % SODIUM CHLORIDE 1,000 ML IV SCH ×2 (08:27→18:06)
[2017-03-01] MEDS: LOSARTAN POTASSIUM 50 MG TABLET PO SCH (08:27)
[2017-03-01] MEDS: METOPROLOL TARTRATE 50 MG TABLET PO SCH ×2 (08:29→19:49)
[2017-03-01] MEDS ORDERED: LOSARTAN POTASSIUM 50 MG TABLET PO SCH (09:00)
[2017-03-01] MEDS: TAMSULOSIN HCL 0.4 MG CAP.ER.24H PO SCH ×4 (13:35→18:05)
[2017-03-01] MEDS: ENOXAPARIN SODIUM 30 MG/0.3 ML DISP.SYRIN SQ SCH (13:35)
[2017-03-01] MEDS: FINASTERIDE 5 MG TABLET PO SCH (19:49)
[2017-03-02] MEDS: KETOROLAC TROMETHAMINE 30 MG/1ML VIAL IVP PRN (02:10)
[2017-03-02] MEDS: 0.9 % SODIUM CHLORIDE 1,000 ML IV SCH ×2 (03:09→07:59)
[2017-03-02] MEDS: PANTOPRAZOLE SODIUM 40 MG TABLET PO SCH (06:14)
[2017-03-02] MEDS: LOSARTAN POTASSIUM 50 MG TABLET PO SCH (11:45)
[2017-03-02] MEDS: METOPROLOL TARTRATE 50 MG TABLET PO SCH (11:45)
[2017-03-02] MEDS: ENOXAPARIN SODIUM 30 MG/0.3 ML DISP.SYRIN SQ SCH (11:46)
[2017-03-02] MEDS: CEFUROXIME AXETIL 250 MG TABLET PO SCH (11:46)
--- NOTE | 2017-03-02 12:32 | Diagnostic Imaging Report ---
[facility]/MED SURG [facility] [address] [facility] [address] [place], [place]. [address] Report Submission Date: Mar 02, 2017 12:18:54 PM MANAGER INSPECTION Patient Study Name: JOANNA KENNEDY Date: Mar 02, 2017 10:52:33 AM MANAGER INSPECTION Modality Type: CT\SR Gender: M Description: CT ABD & PELVIS W/ CON : 07/01/27 Institution: [facility] Physician: [facility] WING/MED SURG Examination: CT Abdomen/pelvis History: Generalized abdominal discomfort Comparison exams: Plain film dated 01 March 2017 Technique: CT Abdomen/pelvis with IV protocol. Findings: Liver demonstrates diffuse low attenuation. No central lesion. Hemangioma involving the spleen. Scattered splenic granuloma. Adrenal glands without abnormality. Pancreas not enlarged. Gallbladder without gallstone. Kidneys demonstrate cortical cystic areas - largest is on the right measuring 4.9 cm. No suspicious calcifications. Ureters not well visualized. Bladder distended. Abdominal aorta demonstrates dilation with graft in place. Aorta appears to measure 7.2 cm diameter. Along the upper right margin of the graft is an echogenic/contrast appearing density outside the graft margin. Cardiac silhouette not enlarged. No pericardial effusion. Contrast within the bowel. No abnormal small bowel dilation. Significant amount of stool within the large bowel limiting sensitivity. No obvious free fluid collection. Osseous structures demonstrate degenerative changes. Lung bases demonstrate parenchymal scarring. No effusion. Impression: Aortic graft in place. Contrast appearing density adjacent to the right aspect of the graft - without old are exams to document new versus old finding, concern exist for graft leaking. Vascular surgical consultation recommended. Significant large bowel stool: Constipation. Fatty liver. 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 Bilateral renal cyst. No suspicious renal calcifications. No lung base consolidation or effusion. Discussed finding with charge nurse to give inflammation to Dr. Littlejohn at 1210 hours on 02 February 2017 CDT Electronically signed on Mar 02, 2017 12:18:54 PM MANAGER INSPECTION by: Shankar Palmer Discussed finding with Dr. Littlejohn at 1220 hours on 02 February 2017 CDT Addendum electronically signed by Shankar Palmer on March 02, 2017 12:21:12 PM MANAGER INSPECTION MTDD
[2017-03-02 15:50] LABS: BASOPHILS % 0.7 (0.0-1.5); EOSINOPHILS % 2.3 % (0.0-6.8); MEAN CORPUSCULAR HEMOGLOBIN 35.1 pg (28.0-34.0); MEAN CORPUSCULAR VOLUME 101.1 fl (80.0-100.0); MONOCYTES % 7.5 % (0.0-11.0)
[2017-03-02 15:52] VITALS: BP 185/92
[2017-03-02 16:27] LABS: eGFR (African) > 60; eGFR (Non-African) > 60
--- NOTE | 2017-04-10 16:01 | Discharge Summary ---
Discharge Summary - Discharge Sumary History of Present Illness: 89yo white male who sates that he has recurrent problems with constipation. Has only been having small stools starting about one week ago. Over the last 3 days has not had any stools. Has been passing some gas. No blood in stools noted. Has had a colonoscopy in the past but not sure how long ago. Last nco he vomited a small amount, no blood noted. Does not take anything to help prevent constipation. Has taken some Pepto yesterday. Has had appendectomy done years ago. Condition at Discharge: Stable Home Medications: Ambulatory Orders Medication Instructions Recorded Finasteride [Proscar] 5 mg PO HS #30 tablet 06/14/16 Losartan Potassium [Cozaar] 50 mg PO DAILY #30 tablet 06/14/16 Metoprolol Tartrate [Lopressor] 50 mg PO BID #60 tablet 06/14/16 Pantoprazole Sodium [Protonix] 40 mg PO 717 #30 tablet.dr 06/14/16 Tamsulosin HCl [Flomax] 0.4 mg PO [id number] #30 cap.er.24h 06/14/16 Polyethylene Glycol 3350 [Miralax] 17 gm PO 1100 #30 powd.pack 03/02/17 Citalopram Hydrobromide 20 mg PO DAILY 03/13/17 [Citalopram HBr] Consultations this Visit: None Procedures this Visit: None Allergies/Adverse Reactions: Allergies Allergy/AdvReac Type Severity Reaction Status Date / Time No Known Allergies Allergy Verified 03/13/17 10:47 Discharge Summary: Patient was administered an enema with good results. Patient was given cathartic orally to help with his involvement. Repeat KUB did show decrease stool burden in the colon. Patient continued to complain of some cramping abdominal pain. A CT scan was done. There was some possible contrast by is mixed to the patient's abdominal aortic aneurysm. There are some questions about whether he may be having a leaking aneurysm. Vascular surgeon was called and was advised that patient could be followed up on and outpatient basis. Patient was subsequently discharged home in stable condition. Susana Pedroza, Patient primary care provider was notified of the results. - Final Diagnosis (1) Constipation Problems: improved,Patient was advised to drink a lot of fluids to help with his constipation. (2) CAD (coronary artery disease) Problems: Stable patient will be continued on home medications. (3) HTN (hypertension) Problems: Stable on home medications.
--- NOTE | 2017-04-10 16:01 | Inpatient Progress Note ---
Subjective - Required Recertification Statement I anticipate X number of days because-include discharge plan: 1 day - Review of Systems Events since last encounter: Patient did have good results from the enema that was administered yesterday. Patient continues to complain of some fullness in his abdominal area. Patient denies any nausea or vomiting. Oral intake has been adequate. Objective - Exam Vitals and I&O: Vital Signs Temp 97.8 F 03/02/17 14:00 Pulse 61 03/02/17 14:00 Resp 18 03/02/17 14:00 BP 185/92 03/02/17 14:00 Pulse Ox 96 03/02/17 14:00 General: Alert, Oriented to Person, Oriented to Place, Oriented to Time, Cooperative Neck: Supple Lungs: Clear to auscultation, Normal air movement, Speaks full Sentences. No: Wheezes, Rales, Rhonchi Cardiovascular: Regular rate, Normal S1, Normal S2 Abdomen: Normal bowel sounds, Soft, No hepatospenomegaly, Other (AAA palpable). No: No tenderness (while diffuse tenderness noted in all four quadrants.) Extremities: No clubbing, No cyanosis, No edema Skin: Normal, [place], Warm, Dry Psych/Mental Status: Mental status NL, Mood NL, Intact Judgment - Results Results: Laboratory Results WBC 5.10 K/ul (4.00-12.00) 03/02/17 14:50 RBC 3.33 M/ul (3.90-5.20) L 03/02/17 14:50 Hgb 11.7 g/dL (12.0-18.0) L 03/02/17 14:50 Hct 33.6 % (37.0-53.0) L 03/02/17 14:50 MCV 101.1 fl (80.0-100.0) H 03/02/17 14:50 MCH 35.1 pg (28.0-34.0) H 03/02/17 14:50 MCHC 34.8 g/dL (30.0-36.0) 03/02/17 14:50 RDW 13.9 % (11.3-14.3) 03/02/17 14:50 Plt Count 109 K/mm3 (130-400) L 03/02/17 14:50 Neut % (Auto) 78.2 % (39.0-79.0) 03/02/17 14:50 Lymph % (Auto) 9.8 % (16.0-50.0) L 03/02/17 14:50 [place] % (Auto) 7.5 % (0.0-11.0) 03/02/17 14:50 Eos % (Auto) 2.3 % (0.0-6.8) 03/02/17 14:50 Baso % (Auto) 0.7 (0.0-1.5) 03/02/17 14:50 Neut # (Auto) 4.0 # k/uL (1.4-7.7) 03/02/17 14:50 Lymph # (Auto) 0.5 # k/uL (0.6-4.0) L 03/02/17 14:50 [place] # (Auto) 0.4 # k/uL (0.0-0.9) 03/02/17 14:50 Eos # (Auto) 0.1 # k/uL (0.0-0.6) 03/02/17 14:50 Baso # (Auto) 0.0 # k/uL (0.0-0.5) 03/02/17 14:50 Reactive Lymphs % 1.5 % (0.0-5.0) 03/02/17 14:50 Reactive Lymphs # 0.1 # k/uL (0.0-0.8) 03/02/17 14:50 Sodium 130 mmol/L (136-145) L 03/02/17 14:50 Potassium 4.2 mmol/L (3.5-5.1) 03/02/17 14:50 Chloride 96 mmol/L (98-107) L 03/02/17 14:50 Carbon Dioxide 28 mmol/L (22-30) 03/02/17 14:50 BUN 19 mg/dL (9-20) 03/02/17 14:50 Creatinine 1.20 mg/dL (0.66-1.25) 03/02/17 14:50 Estimated Creat Clear 41 03/02/17 14:50 Est GFR ( Amer) > 60 (60-) 03/02/17 14:50 Est GFR (Non-Af Amer) > 60 (60-) 03/02/17 14:50 Glucose 111 mg/dL (74-106) H 03/02/17 14:50 Calcium 8.5 mg/dL (8.4-10.2) 03/02/17 14:50 Total Bilirubin 1.9 mg/dL (0.2-1.3) H 02/28/17 08:05 AST 50 U/L (15-46) H 02/28/17 08:05 ALT 36 U/L (13-69) 02/28/17 08:05 Alkaline Phosphatase 87 U/L (38-126) 02/28/17 08:05 Total Protein 7.1 g/dL (6.3-8.2) 02/28/17 08:05 Albumin 4.4 g/dL (3.5-5.0) 02/28/17 08:05 Lipase 97 U/L (23-300) 02/28/17 08:05 Urine Color Yellow (YELLOW) 02/28/17 08:34 Urine Appearance Clear (CLEAR) 02/28/17 08:34 Urine pH 7.5 (5.0 - 8.0) 02/28/17 08:34 Ur Specific [place] 1.025 (1.010-1.030) 02/28/17 08:34 Urine Protein 2+ mg/dL (NEGATIVE) H 02/28/17 08:34 Urine Ketones 1+ mg/dL (NEGATIVE) H 02/28/17 08:34 Urine Occult Blood 2+ (NEGATIVE) H 02/28/17 08:34 Urine Nitrite Positive (NEGATIVE) H 02/28/17 08:34 Urine Bilirubin Negative (NEGATIVE) 02/28/17 08:34 Urine Urobilinogen 0.2 Eu (0.2-1.0) 02/28/17 08:34 Ur Leukocyte Esterase Negative (NEGATIVE) 02/28/17 08:34 Urine Glucose Negative mg/dL (NEGATIVE) 02/28/17 08:34 Assessment/Plan - Assessment/Plan (1) Constipation Status: Acute Qualifiers: Constipation type: slow transit constipation Qualified Code(s): K59.01 - Slow transit constipation Assessment: Patient will have another KUB done. Will continue with oral cathartic. (2) CAD (coronary artery disease) Status: Chronic Qualifiers: Coronary Disease-Associated Artery/Lesion type: [place] artery [place] vs. transplanted heart: [place] heart Associated angina: without angina Qualified Code(s): I25.10 - Atherosclerotic heart disease of [place] coronary artery without angina pectoris Assessment: Stable (3) HTN (hypertension) Status: Chronic Qualifiers: Hypertension type: essential hypertension Qualified Code(s): I10 - Essential (primary) hypertension Assessment: Stable
== END 2017-03-02 17:30 | disposition home or self-care (01) ==
LOC: ED 07:24 → SOUTH 08:45
PROVIDERS: ADMIT Family Medicine; ATTEND Family Medicine
DX: K59.01 Slow transit constipation (principal); I10 Essential (primary) hypertension; I25.10 Atherosclerotic heart disease of native coronary artery without angina pectoris; K21.9 Gastro-esophageal reflux disease without esophagitis; N40.0 Benign prostatic hyperplasia without lower urinary tract symptoms; Z95.810 Presence of automatic (implantable) cardiac defibrillator
CPT/HCPCS: 36415; 51701; 74000; 74020; 74177; 80048; 80053; 81002; 83690; 85025; 87086; 87186; 96365; 96366; 96375; 99217; 99219; 99225; 99284; J1650; J1885; Q9967; G0378; J7030; Q9966; S1016

== ENCOUNTER 2017-03-13 10:29 | Emergency (ER) | payer OTHER ==
[2017-03-13 11:42] LABS: BASOPHILS % 0.5 (0.0-1.5); MEAN CORPUSCULAR HEMOGLOBIN 34.5 pg (28.0-34.0); MEAN CORPUSCULAR VOLUME 99.2 fl (80.0-100.0); MONOCYTES % 9.9 % (0.0-11.0); NEUTROPHILS # 4.4 # k/uL (1.4-7.7)
--- NOTE | 2017-03-13 11:54 | ED Physician Documentation ---
General Adult - HPI Stated Complaint: Cloudy urine Chief Complaint: General Adult Onset: days ago Timing: still present Severity: moderate Further Comments: yes (Pt is an 89 yo male with cloudy urine who believes he has a UTI. Pt had recent AAA re-stenting last week. Pt also has a palpable abd mass, near the umbilicus, that he says is new. Pt self caths 4 times daily. Pt was started on tx for UTI on 02-28-17, at which time he was also transferred to [facility] for repeat AAA stenting. It is unclear if his abx for UTI was continued after his transfer or discharge from [facility]. Pt has not had systemic sx. No fever, n/v.) - ROS CONST: no problems EYES/ENT: none CVS/RESP: none GI/: other (abd mass) MS/SKIN/LYMPH: none - PAST HX Past History: hypertension, other (constipation) Surgeries/Procedures: other (AAA repair, mult episodes of stenting with one this month.) Allergies/Adverse Reactions: Allergies Allergy/AdvReac Type Severity Reaction Status Date / Time No Known Allergies Allergy Verified 03/13/17 10:47 Home Medications: Ambulatory Orders Medication Instructions Recorded Finasteride [Proscar] 5 mg PO HS #30 tablet 06/14/16 Losartan Potassium [Cozaar] 50 mg PO DAILY #30 tablet 06/14/16 Metoprolol Tartrate [Lopressor] 50 mg PO BID #60 tablet 06/14/16 Pantoprazole Sodium [Protonix] 40 mg PO 717 #30 tablet.dr 06/14/16 Tamsulosin HCl [Flomax] 0.4 mg PO [id number] #30 cap.er.24h 06/14/16 Polyethylene Glycol 3350 [Miralax] 17 gm PO 1100 #30 powd.pack 03/02/17 Citalopram Hydrobromide 20 mg PO DAILY 03/13/17 [Citalopram HBr] Levofloxacin [Levaquin] 250 mg PO DAILY #10 tablet 03/13/17 - SOCIAL HX Smoking History: non-smoker - FAMILY HX Family History: No - VITAL SIGNS Vital Signs: Vital Signs Temp Pulse Resp BP Pulse Ox 98.3 F 64 18 137/56 96 03/13/17 10:40 03/13/17 10:40 03/13/17 10:40 03/13/17 10:40 03/13/17 10:40 - REVIEWED ASSESSMENTS Nursing Assessment Reviewed: Yes Vitals Reviewed: Yes Progress - Progress Progress: Abd u/s: Sonographic evaluation the abdomen in the region of the palpable lump demonstrates a heterogeneous density measuring 6.6 X 6.2 cm in cross-section diameter. Lumen/stent along the posterior margin. No other overt soft tissue irregularities. d/w Dr. Silva, [facility] vascular surgeon who placed AAA stent earlier this month. Findings are as expected, including hgb=8.2. Pt's hgb was 9.1 on d/c from [facility]. Pt should be encouraged to drink fluids and is to f/u with Dr. Silva next week. Levaquin 500 mg po in ER for UTI d/c instructions: Rx Levaquin 250 mg. Take one tablet by mouth once daily for 10 days. Follow up with Dr. Silva in about one week about your aneurysm repair. You may call [facility] to reach her office and make an appointment. Drink plenty of fluids. ED Results Lab/Radiology - Lab Results Lab Results: Lab Results 03/13/17 11:25 WBC 5.60 K/ul K/ul (4.00-12.00) RBC 2.36 M/ul L M/ul (3.90-5.20) Hgb 8.2 g/dL L g/dL (12.0-18.0) Hct 23.4 % L % (37.0-53.0) MCV 99.2 fl fl (80.0-100.0) MCH 34.5 pg H pg (28.0-34.0) MCHC 34.8 g/dL g/dL (30.0-36.0) RDW 14.4 % H % (11.3-14.3) Plt Count 149 K/mm3 K/mm3 (130-400) Neut % (Auto) 79.2 % H % (39.0-79.0) Lymph % (Auto) 7.6 % L % (16.0-50.0) [place] % (Auto) 9.9 % % (0.0-11.0) Eos % (Auto) 1.0 % % (0.0-6.8) Baso % (Auto) 0.5 (0.0-1.5) Neut # (Auto) 4.4 # k/uL # k/uL (1.4-7.7) Lymph # (Auto) 0.4 # k/uL L # k/uL (0.6-4.0) [place] # (Auto) 0.6 # k/uL # k/uL (0.0-0.9) Eos # (Auto) 0.1 # k/uL # k/uL (0.0-0.6) Baso # (Auto) 0.0 # k/uL # k/uL (0.0-0.5) Reactive Lymphs % 1.7 % % (0.0-5.0) Reactive Lymphs # 0.1 # k/uL # k/uL (0.0-0.8) - Orders Orders: ED Orders Category Date Time Status US ABDOMEN LIMITED [US] Stat Exams 03/13/17 11:17 Ordered CBC/PLATELET/DIFF Routine Lab 03/13/17 11:25 Completed CMP Routine Lab 03/13/17 11:25 Received RBC/PLATELET MORPHOLOGY Routine Lab 03/13/17 11:25 Completed UA [URINALYSIS] Routine Lab 03/13/17 Ordered General Adult Physical Exam - PHYSICAL EXAM GENERAL APPEARANCE: no distress EENT: pharynx normal NECK: normal inspection, supple RESPIRATORY: no resp distress, chest non-tender, breath sounds normal CVS: reg rate & rhythm, heart sounds normal ABDOMEN: other (palpable mass to the R of umbilicus, non-pulsitile) BACK: normal inspection, no CVA tenderness SKIN: warm/dry, normal color EXTREMITIES: non-tender, normal range of motion, no edema NEURO: oriented X3, motor nml, sensation nml Discharge Clincal Impression: recent aneurysm stenting UTI (urinary tract infection) Qualifiers: Urinary tract infection type: site unspecified Hematuria presence: without hematuria Qualified Code(s): N39.0 - Urinary tract infection, site not specified Prescriptions: Levofloxacin [Levaquin] 250 mg PO DAILY #10 tablet Referrals: Susana Pedroza FNP [Primary Care Provider] - Condition: Good Disposition: 01 HOME, SELF-CARE Decision to Admit: NO Decision Time: 12:39
[2017-03-13 11:55] LABS: eGFR (African) > 60; eGFR (Non-African) > 60
[2017-03-13 12:22] LABS: APPEARANCE,URINE Clear (CLEAR); COLOR,URINE Yellow (YELLOW); OCCULT BLOOD,URINE Trace-intact (NEGATIVE); PH URINE 6.5 (5.0 - 8.0)
[2017-03-13] MEDS: LEVOFLOXACIN 500 MG TABLET PO ONE (12:43)
[2017-03-13 12:58] VITALS: BP 122/67
--- NOTE | 2017-03-13 14:00 | Diagnostic Imaging Report ---
[place] [address] [facility] [address] [place] [address]. [id number] Report Submission Date: Mar 13, 2017 11:55:42 AM CARE SPECIALIST Patient Study Name: JOANNA KENNEDY Date: Mar 13, 2017 11:32:21 AM CARE SPECIALIST Modality Type: US Gender: M Description: US ABD LIMITED : 07/01/27 Institution: Physician: [place] Examination: Ultrasound abdomen limited History: Palpable lump. History of abdominal aneurysm with stent. Comparison exams: CT abdomen dated 02 March 2017 Findings: Sonographic evaluation the abdomen in the region of the palpable lump demonstrates a heterogeneous density measuring 6.6 X 6.2 cm in cross-section diameter. Lumen/stent along the posterior margin. No other overt soft tissue irregularities. 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 Correlate with CT examination findings. Electronically signed on Mar 13, 2017 11:55:42 AM CARE SPECIALIST by: Shankar ROWLEY
== END 2017-03-13 12:55 | disposition home or self-care (01) ==
LOC: ED 10:29
DX: N39.0 Urinary tract infection, site not specified (principal); Z98.62 Peripheral vascular angioplasty status
CPT/HCPCS: 51701; 76705; 80053; 81002; 85025; 87086; 87186; 99282; 99283; S1016

== ENCOUNTER 2017-05-24 08:16 | Emergency (ER) | payer OTHER ==
--- NOTE | 2017-05-24 08:19 | ED Physician Documentation ---
General Adult - HISTORIAN Historian: patient - HPI Stated Complaint: high blood pressure Chief Complaint: General Adult Onset: hours (2) Timing: better Severity: mild Further Comments: yes (he states that his blood pressure at home was 196/90. Denies any chest pain or other complaints. No new weakness. He states he might be a "little dizzy" He is not sure if he took his morning meds this am. His says this is not a new issue - his memory . No falls) Last known Well Date: 05/24/17 Last Known Well Time: 07:00 Last known Well Code/Unknown Code: Unknown - ROS CONST: no problems EYES/ENT: none CVS/RESP: denies: chest pain, shortness of breath, cough GI/: denies: vomiting, nausea, diarrhea MS/SKIN/LYMPH: none NEURO/PSYCH: dizziness - PAST HX Past History: hypertension Surgeries/Procedures: other (appendectomy, ) Immunizations: UTD Allergies/Adverse Reactions: Allergies Allergy/AdvReac Type Severity Reaction Status Date / Time No Known Allergies Allergy Verified 05/24/17 08:38 Home Medications: Ambulatory Orders Medication Instructions Recorded Losartan Potassium [Cozaar] 50 mg PO DAILY #30 tablet 06/14/16 Metoprolol Tartrate [Lopressor] 50 mg PO BID #60 tablet 06/14/16 Pantoprazole Sodium [Protonix] 40 mg PO 717 #30 tablet. 06/14/16 Tamsulosin HCl [Flomax] 0.4 mg PO [id number] #30 cap.er.24h 06/14/16 Polyethylene Glycol 3350 [Miralax] 17 gm PO 1100 #30 powd.pack 03/02/17 Finasteride [Proscar] 5 mg PO DAILY 05/24/17 Memantine HCl [Namenda] 0.5 tab PO BID 05/24/17 Mirtazapine [Remeron] 15 mg PO DAILY 05/24/17 - SOCIAL HX Smoking History: non-smoker Alcohol Use: none Drug Use: none - FAMILY HX Family History: No - VITAL SIGNS Vital Signs: Vital Signs Temp Pulse Resp BP Pulse Ox 122/67 03/13/17 12:55 - REVIEWED ASSESSMENTS Nursing Assessment Reviewed: Yes Vitals Reviewed: Yes Progress - Progress Progress: 09: Discussed results with pt and . Will encourage a CBC re check in one week with Dr Nagel. DG General Adult Physical Exam - PHYSICAL EXAM GENERAL APPEARANCE: no distress EENT: eye inspection normal, [place] NECK: normal inspection, thyroid normal RESPIRATORY: no resp distress, chest non-tender, breath sounds normal CVS: reg rate & rhythm, heart sounds normal, equal pulses, no murmur ABDOMEN: soft, normal bowel sounds SKIN: warm/dry, normal color EXTREMITIES: non-tender, normal range of motion, no evidence of injury, no edema NEURO: oriented X3, CN's nml as tested, motor nml, sensation nml, mood/affect nml Discharge Clincal Impression: Dizziness Referrals: Susana Pedroza, AGRIC[employer] EQUIPMENT SALES ENGINEER [Primary Care Provider] - 2 Days Additional Instructions: 1. Increase fluids 2. continue checking B/P for provider 3. Take meds 4. Return for CBC to PCP in one week 5. Follow up with PCP in 2-6 days 6. Return to ER for any concerns Condition: Stable Disposition: 01 HOME, SELF-CARE Decision to Admit: NO Date of Decison to Admit: 05/24/17 Decision Time: 09:25
[2017-05-24 08:59] LABS: BASOPHILS % 0.8 (0.0-1.5); MEAN CORPUSCULAR HEMOGLOBIN 34.4 pg (28.0-34.0); MEAN CORPUSCULAR VOLUME 100.7 fl (80.0-100.0); NEUTROPHILS # 2.4 # k/uL (1.4-7.7)
[2017-05-24 09:10] LABS: eGFR (African) > 60; eGFR (Non-African) > 60
[2017-05-24 09:39] VITALS: BP 141/72
== END 2017-05-24 09:37 | disposition home or self-care (01) ==
LOC: ED 08:16
DX: I10 Essential (primary) hypertension (principal); R42 Dizziness and giddiness
CPT/HCPCS: 80053; 84484; 85025; 99282; S1016